=== PATIENT | female | born 1985 | race African-American/Black ===

== ENCOUNTER 2020-09-04 18:55 | Emergency (ER) | payer BC ==
[~2020-09-04] VITALS: Ht 170.2 cm; Wt 80.0 kg
[2020-09-04] MEDS ORDERED: IBUPROFEN 800MG TABLET PO ONE (21:15)
[2020-09-04] MEDS ORDERED: DIAZEPAM 5 MG TABLET PO ONE (21:15)
[2020-09-04] MEDS ORDERED: METH-773 MT (23:28)
[2020-09-04] MEDS ORDERED: IBUP-2030 MT (23:28)
[2020-09-04 23:47] VITALS: BP 117/68
== END 2020-09-04 23:49 | disposition home or self-care (01) ==
LOC: ER 18:55
DX: M54.2 Cervicalgia (principal); M54.6 Pain in thoracic spine; M25.571 Pain in right ankle and joints of right foot; V43.52XA Car driver injured in collision with other type car in traffic accident, initial encounter; Y93.89 Activity, other specified; Y92.488 Other paved roadways as the place of occurrence of the external cause; Y99.8 Other external cause status
CPT/HCPCS: 72128; 73610; 81025; 99285